=== PATIENT | female | born 1985 | race Caucasian/White ===

== ENCOUNTER → 2017-01-25 | Outpatient (CLI) | payer OTHER ==
--- NOTE | 2017-01-25 14:52 | REP ---
BILATERAL BREAST ULTRASOUND: 01/25/2017. Comparison: Diagnostic bilateral mammogram 01/25/2017. Clinical history: Bilateral intermittent milky discharge. Palpable breast lumps in this 31-year-old female. She has not breastfed for the past 3 years. Reports a palpable area upper inner quadrant left breast at about the 10-11 o'clock position. A right axillary palpable finding is no longer evident to her. Findings: Sonographic evaluation of the upper inner quadrant of the left breast at around 10 o'clock reviewed in conjunction with the mammogram showed no sonographically definable cyst, solid mass, architectural distortion or dilated duct. The right axilla showed no sonographically definable masses. No cyst or architectural distortion or other significant finding. Impression: 1. BI-RADS / ACR category 1 negative ultrasound bilateral breast. Please see mammogram report for final assessment and recommendation. Signed by Gold Hope MD 01/25/2017 07:41 P
--- NOTE | 2017-01-25 17:57 | REP ---
DIAGNOSTIC DIGITAL BILATERAL MAMMOGRAM: 01/25/2017. Clinical history: 31 year-old female with intermittent to the past history of nipple discharge bilaterally with palpable findings both breasts. The order does not specify but the patient notes upper inner quadrant left breast pointing to about 10 o'clock position. The axillary palpable area finding is no longer present to her. The patient also reports that since gastric bypass she has lost 180 pounds over 5 years. Technique: Standard two-view mammography was performed in this 31-year-old female as an initial study and exaggerated CC view of the right breast was performed and spot magnified CC and MLO views upper inner quadrant left breast along with a true left MLO provided. The patient also had bilateral breast ultrasound in the upper inner quadrant left, axillary region right. Findings: Scattered fibroglandular elements are noted. Moderate density in the breast parenchyma. There is some minor tissue asymmetry upper outer quadrant of the right breast upper inner quadrant of the left breast. I see no nipple retraction, skin thickening, suspicious clusters of microcalcification or discrete mass. [place] marker is placed over the palpable finding which is directly adjacent to the area of her tissue asymmetry. This area shows no mass on standard images. On spot compression images in the upper inner quadrant tissue asymmetry compresses to similar a normal parenchymal appearance to other areas. There is no dominant mass, architectural distortion, clustered microcalcification or other secondary signs of malignancy on the left. The exit exaggerated CC view shows no axillary tail mass or abnormality nor does the MLO view. MLO view does show axillary lymph nodes with fatty change and abundant calcifications on their margins, granulomatous nodes. There are no other findings. The breast ultrasound on the left showed no sonographically definable mass, architectural distortion, cyst or dilated duct. Heterogeneous parenchymal echotexture is noted there. The right axilla showed no sonographically definable mass or cyst. Impression: 1. BIRADS ACR category II, benign. Benign findings. No evidence of malignancy. Baseline exam with some tissue asymmetry upper inner quadrant left breast without mammographic or sonographic evidence of mass or persistent abnormality. 2. Tissue asymmetry upper outer quadrant of the right breast without mass and with the presence of calcified axillary nodes as a benign finding. Representing granulomatous nodes. Recommend followup mammography at age 39 or sooner if clinically warranted. This mammogram was interpreted with the aid of an FDA-approved computer-aided detection system. The patient states she had a clinical breast exam in 11/2016. The patient letter being requested is M2. Signed by Gold Hope MD 01/25/2017 07:46 P
== END ==
LOC: M RAD 12:03
PROVIDERS: ATTEND Internal Medicine
DX: N63.0 Unspecified lump in unspecified breast (principal)

== ENCOUNTER → 2018-01-08 | Outpatient (REF) | payer OTHER | LOC: M SFHCLERA 09:36 | DX: J02.9 Acute pharyngitis, unspecified (principal) ==

== ENCOUNTER → 2019-11-06 | Outpatient (REF) | payer OTHER | LOC: M SFHCLERA 15:57 | PROVIDERS: ATTEND Nurse Practitioner Family | DX: J02.9 Acute pharyngitis, unspecified (principal) ==